=== PATIENT | male | born 1950 | race Caucasian/White ===

== ENCOUNTER 2016-06-21 12:23 | Emergency (ER) | payer OTHER ==
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
[2016-06-21] MEDS ORDERED: HYDROmorphONE/DILAUDID 1 MG/ML SYR IVP ONE ×3 (12:36→16:14)
[2016-06-21] MEDS ORDERED: IOPAMIDOL (ISOVUE-300) 100 ML BTL IV ONE (13:15)
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
[2016-06-21] MEDS ORDERED: ONDANSETRON 4 MG/2 ML VIAL ONE (14:34)
[2016-06-21] MEDS ORDERED: NS 1,000 ML IV ONE (14:34)
[2016-06-21] MEDS ORDERED: ONDANSETRON 4 MG/2 ML VIAL IVP ONE ×2 (14:34→16:18)
[2016-06-21 16:03] LABS: % IMMATURE GRANULYOCYTES 0.4 % (0.0-1.1); ABSOLUTE IMMATURE GRANULOCYTES 0.04 10^3/uL (0.00-0.10); ADD DIFF? NO; ADD MORPH? NO; ADD SCAN? NO; ATYPICAL LYMPHOCYTE FLAG 70 (0-99); FRAGMENT RBC FLAG 10 (0-99); HEMATOCRIT 46.2 % (40.0-51.0); HEMOGLOBIN 15.8 g/dL (13.7-17.5); LEFT SHIFT FLG 0 (0-99); LIPEMIA HEMOLYSIS FLAG 90 (0-99); MEAN CELL HEMOGLOBIN 31.3 pg (27.9-34.1); MEAN CELL HEMOGLOBIN CONCENTR. 34.2 g/dL (32.4-36.7); MEAN CELL VOLUME 91.5 fL (81.5-99.8); PLATELET CLUMPS FLAG 10 (0-99); PLATELET COUNT 278 10^3/uL (150-400); RED BLOOD CELL COUNT 5.05 10^6/uL (4.40-6.38); RED CELL DISTRIBUTION WIDTH 12.4 % (11.5-15.2)
[2016-06-21 16:04] VITALS: BP 139/83; PULSE 89; RESP 14; TEMP 97.7; O2SAT 94
[2016-06-21 16:08] LABS: ALANINE AMINOTRANSFERASE 45 IU/L (21-72); ALBUMIN 3.8 g/dL (3.5-5.0); ALKALINE PHOSPHATASE 68 IU/L (38-126); ANION GAP 11 mEq/L (8-16); ASPARTATE AMINOTRANSFERASE 37 IU/L (17-59); BILIRUBIN,TOTAL 0.8 mg/dL (0.1-1.4); BILIRUBIN-CONJUGATED 0.5 mg/dL (0.0-0.5); BILIRUBIN-UNCONJUGATED 0.3 mg/dL (0.0-1.1); CALCIUM 9.4 mg/dL (8.5-10.4); CARBON DIOXIDE 23 mEq/l (22-31); CHLORIDE 106 mEq/L (97-110); GLOMERULAR FILTRATION RATE > 60; GLUCOSE 113 mg/dL (70-100); POTASSIUM 3.3 mEq/L (3.5-5.2); SODIUM 140 mEq/L (134-144); TOTAL PROTEIN 7.8 g/dL (6.3-8.2)
== END 2016-06-21 16:30 | disposition short-term general hospital (02) ==
LOC: EDUNIT#
DX: S12.9XXA Fracture of neck, unspecified, initial encounter (principal); S32.402A Unspecified fracture of left acetabulum, initial encounter for closed fracture; V49.40XA Driver injured in collision with unspecified motor vehicles in traffic accident, initial encounter; Y92.410 Unspecified street and highway as the place of occurrence of the external cause; Y99.8 Other external cause status; Y93.89 Activity, other specified
CPT/HCPCS: 82947-QW; 96374; J1170; J2405; L0174; Q9967

== ENCOUNTER 2016-06-30 11:15 | Inpatient (IN) | payer OTHER ==
[2016-06-30] MEDS ORDERED: ALBUTEROL 60 PUFFS/8 GM MDI IH PRN (12:15)
[2016-06-30] MEDS ORDERED: OXYCODONE/APAP 5/325 TAB PO PRN (12:15)
[2016-06-30] MEDS ORDERED: METAXALONE 800 MG TAB PO SCH (12:30)
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
[2016-06-30] MEDS: OXYCODONE/APAP 5/325 TAB PO PRN ×2 (16:37→21:52)
[2016-06-30] MEDS ORDERED: SENNOSIDES 1 TAB PO SCH (21:00)
[2016-06-30] MEDS: ENOXAPARIN 30 MG/0.3 ML SYR SC SCH (21:52)
[2016-06-30] MEDS: SENNOSIDES 1 TAB PO SCH (22:05)
[2016-07-01] MEDS: OXYCODONE/APAP 5/325 TAB PO PRN ×5 (02:37→21:03)
[2016-07-01] MEDS: LEVOTHYROXINE 150 MCG TAB PO SCH (06:11)
[2016-07-01] MEDS: FLUTICASONE NASAL 120 SPRAYS/16 GM MDI EACHNARE SCH (08:48)
[2016-07-01 08:49] LABS: % IMMATURE GRANULYOCYTES 2.5 % (0.0-1.1); ABSOLUTE IMMATURE GRANULOCYTES 0.23 10^3/uL (0.00-0.10); ADD DIFF? NO; ADD MORPH? NO; ADD SCAN? NO; ATYPICAL LYMPHOCYTE FLAG 20 (0-99); FRAGMENT RBC FLAG 0 (0-99); HEMATOCRIT 25.8 % (40.0-51.0); HEMOGLOBIN 8.3 g/dL (13.7-17.5); LEFT SHIFT FLG 20 (0-99); LIPEMIA HEMOLYSIS FLAG 80 (0-99); MEAN CELL HEMOGLOBIN 31.2 pg (27.9-34.1); MEAN CELL HEMOGLOBIN CONCENTR. 32.2 g/dL (32.4-36.7); MEAN PLATELET VOLUME 9.4 fL (8.7-11.7); PLATELET CLUMPS FLAG 0 (0-99); PLATELET COUNT 537 10^3/uL (150-400); RED BLOOD CELL COUNT 2.66 10^6/uL (4.40-6.38); RED CELL DISTRIBUTION WIDTH 15.1 % (11.5-15.2)
[2016-07-01] MEDS: ENOXAPARIN 30 MG/0.3 ML SYR SC SCH ×2 (08:49→21:04)
[2016-07-01] MEDS: SENNOSIDES 1 TAB PO SCH ×2 (08:49→21:00)
[2016-07-01] MEDS ORDERED: ENOXAPARIN 40 MG/0.4 ML SYR SC SCH (09:00)
[2016-07-01 09:01] LABS: ALANINE AMINOTRANSFERASE 78 IU/L (21-72); ALBUMIN 3.2 g/dL (3.5-5.0); ALKALINE PHOSPHATASE 85 IU/L (38-126); ANION GAP 9 mEq/L (8-16); ASPARTATE AMINOTRANSFERASE 57 IU/L (17-59); BILIRUBIN,TOTAL 0.8 mg/dL (0.1-1.4); CALCIUM 8.3 mg/dL (8.5-10.4); CARBON DIOXIDE 26 mEq/l (22-31); CHLORIDE 102 mEq/L (97-110); CREATININE 0.8 mg/dL (0.7-1.3); GLOMERULAR FILTRATION RATE > 60; GLUCOSE 93 mg/dL (70-100); POTASSIUM 4.7 mEq/L (3.5-5.2); SODIUM 137 mEq/L (134-144); TOTAL PROTEIN 6.4 g/dL (6.3-8.2)
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
--- NOTE | 2016-07-01 09:29 | PDOREHIP ---
Admission [facility] - Admission - 3 Day Assessment Period Admission Date/Day 1: 06/30/16 Day 2: 07/01/16 Day 3: 07/02/16 - Active Diagnoses Comorbidities and Co-existing Conditions at Admission: 55888. None of the Above - Skin Conditions Unhealed Pressure Ulcer (1 or more/Stage 1 or >)-Admission: 1. Yes # Stage 2 Pressure Ulcers-Admission: 1 (Left buttock)
[2016-07-01] MEDS: METAXALONE 800 MG TAB PO PRN (21:03)
[2016-07-01] MEDS: AQUAPHOR OINTMENT 3.5 OZ JAR TP SCH (21:04)
[2016-07-02] MEDS: OXYCODONE/APAP 5/325 TAB PO PRN ×5 (04:02→21:07)
[2016-07-02] MEDS: LEVOTHYROXINE 150 MCG TAB PO SCH (04:55)
[2016-07-02] MEDS: SENNOSIDES 1 TAB PO SCH ×2 (09:04→20:49)
[2016-07-02] MEDS: ENOXAPARIN 30 MG/0.3 ML SYR SC SCH ×2 (09:04→20:49)
[2016-07-02] MEDS: AQUAPHOR OINTMENT 3.5 OZ JAR TP SCH ×2 (09:12→22:46)
[2016-07-02] MEDS: FLUTICASONE NASAL 120 SPRAYS/16 GM MDI EACHNARE SCH (09:12)
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
[2016-07-02] MEDS: METAXALONE 800 MG TAB PO PRN (20:49)
[2016-07-03] MEDS: OXYCODONE/APAP 5/325 TAB PO PRN ×4 (01:06→22:31)
[2016-07-03] MEDS: LEVOTHYROXINE 150 MCG TAB PO SCH (06:31)
[2016-07-03] MEDS: FLUTICASONE NASAL 120 SPRAYS/16 GM MDI EACHNARE SCH (07:29)
[2016-07-03] MEDS: SENNOSIDES 1 TAB PO SCH ×2 (07:29→22:33)
[2016-07-03] MEDS: AQUAPHOR OINTMENT 3.5 OZ JAR TP SCH ×2 (07:30→22:32)
[2016-07-03] MEDS: ENOXAPARIN 30 MG/0.3 ML SYR SC SCH ×2 (07:30→22:30)
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
[2016-07-03] MEDS ORDERED: ENOXAPARIN 60 MG/0.6 ML SYR SC ONE (21:00)
[2016-07-04] MEDS: LEVOTHYROXINE 150 MCG TAB PO SCH (06:01)
[2016-07-04] MEDS: SENNOSIDES 1 TAB PO SCH ×2 (08:18→23:35)
[2016-07-04] MEDS: OXYCODONE/APAP 5/325 TAB PO PRN ×3 (08:20→19:28)
[2016-07-04] MEDS: AQUAPHOR OINTMENT 3.5 OZ JAR TP SCH ×2 (10:02→23:35)
[2016-07-04] MEDS: FLUTICASONE NASAL 120 SPRAYS/16 GM MDI EACHNARE SCH (10:02)
[2016-07-04] MEDS: ENOXAPARIN 30 MG/0.3 ML SYR SC SCH ×2 (11:01→23:25)
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
[2016-07-05] MEDS: OXYCODONE/APAP 5/325 TAB PO PRN ×3 (07:19→21:18)
[2016-07-05] MEDS: AQUAPHOR OINTMENT 3.5 OZ JAR TP SCH ×2 (07:29→21:19)
[2016-07-05] MEDS: LEVOTHYROXINE 150 MCG TAB PO SCH (07:30)
[2016-07-05] MEDS: SENNOSIDES 1 TAB PO SCH ×2 (08:02→21:19)
[2016-07-05 09:13] LABS: HEMATOCRIT 27.6 % (40.0-51.0); HEMOGLOBIN 8.8 g/dL (13.7-17.5); LIPEMIA HEMOLYSIS FLAG 80 (0-99); MEAN CELL HEMOGLOBIN 31.3 pg (27.9-34.1); MEAN CELL HEMOGLOBIN CONCENTR. 31.9 g/dL (32.4-36.7); MEAN CELL VOLUME 98.2 fL (81.5-99.8); PLATELET COUNT 710 10^3/uL (150-400); RED BLOOD CELL COUNT 2.81 10^6/uL (4.40-6.38); RED CELL DISTRIBUTION WIDTH 15.4 % (11.5-15.2)
[2016-07-05] MEDS: FLUTICASONE NASAL 120 SPRAYS/16 GM MDI EACHNARE SCH (09:29)
[2016-07-05] MEDS: ENOXAPARIN 30 MG/0.3 ML SYR SC SCH ×2 (11:53→21:19)
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
[2016-07-05 18:50] VITALS: RESP 16
[2016-07-06] MEDS: OXYCODONE/APAP 5/325 TAB PO PRN ×2 (05:57→13:26)
[2016-07-06] MEDS: LEVOTHYROXINE 150 MCG TAB PO SCH (05:57)
[2016-07-06 06:08] VITALS: BP 122/82; PULSE 96; TEMP 97.9; O2SAT 95
[2016-07-06] MEDS: SENNOSIDES 1 TAB PO SCH (08:34)
[2016-07-06] MEDS: FLUTICASONE NASAL 120 SPRAYS/16 GM MDI EACHNARE SCH (10:12)
[2016-07-06] MEDS: ENOXAPARIN 30 MG/0.3 ML SYR SC SCH (10:12)
[2016-07-06] MEDS: AQUAPHOR OINTMENT 3.5 OZ JAR TP SCH (10:13)
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
== END 2016-07-06 01:30 | disposition home or self-care (01) | DRG 561 ==
LOC: BREH 11:15
PROVIDERS: ADMIT Internal Medicine; ATTEND Internal Medicine
PROC: F0636ZZ Communicative/Cognitive Integration Skills Treatment of Neurological System - Whole Body (ICD-10-PCS; principal; 2016-06-30)
PROC: F07M3ZZ Motor Function Treatment of Musculoskeletal System - Whole Body (ICD-10-PCS; principal; 2016-06-30)
PROC: F08Z7ZZ Vocational Activities and Functional Community or Work Reintegration Skills Treatment (ICD-10-PCS; principal; 2016-06-30)
DX: S32.442D Displaced fracture of posterior column [ilioischial] of left acetabulum, subsequent encounter for fracture with routine healing (principal); S32.432D Displaced fracture of anterior column [iliopubic] of left acetabulum, subsequent encounter for fracture with routine healing; S06.9X9D Unspecified intracranial injury with loss of consciousness of unspecified duration, subsequent encounter; S12.112D Nondisplaced Type II dens fracture, subsequent encounter for fracture with routine healing; S12.201D Unspecified nondisplaced fracture of third cervical vertebra, subsequent encounter for fracture with routine healing; V49.40XD Driver injured in collision with unspecified motor vehicles in traffic accident, subsequent encounter; J01.90 Acute sinusitis, unspecified; D50.9 Iron deficiency anemia, unspecified; E03.9 Hypothyroidism, unspecified; F43.10 Post-traumatic stress disorder, unspecified
CPT/HCPCS: 97110-GO; 97110-GP; 97112-GP; 97116-GP; 97161-GP; 97165-GO; 97530-GO; 97530-GP; 97535-GO; J1650